=== PATIENT | female | born 1965 | race Two or more races ===

== ENCOUNTER 2019-10-13 08:15 | Day surgery (SDC) | payer OTHER ==
[2019-10-13] VITALS (10 sets, daily range): BP systolic 131–152; BP diastolic 69–88
[~2019-10-13] VITALS: Ht 162.6 cm; Wt 83.9 kg
[2019-10-13] MEDS ORDERED: Propofol 200mg/20ml IV ONE (08:16)
[2019-10-13] MEDS ORDERED: LR 1000ml ONE (08:16)
[2019-10-13] MEDS ORDERED: Lidocaine 1% MPF 10mg/ml 5ml ONE (08:16)
[2019-10-13] MEDS ORDERED: HYDROCHLOROTHIA25 MG ORAL (08:54)
[2019-10-13] MEDS ORDERED: Nimbex 2mg/ml Inj 10ML IVP ONE (08:57)
[2019-10-13] MEDS ORDERED: Succinylcholine 20mg/ml 10ml vial ONE (08:57)
[2019-10-13] MEDS ORDERED: LR 1000ml 1,000 ML IVLG SCH (09:06)
--- NOTE | 2019-10-13 09:10 | Anethesia Preoperative Eval ---
Anesthesia Pre-op PMH/ROS General Date of Evaluation: Oct 13, 2019 Time of Evaluation: 09:08 Anesthesiologist: wendie ASA Score: ASA 3 Mallampati Score Class I : Soft palate, uvula, fauces, pillars visible Class II: Soft palate, uvula, fauces visible Class III: Soft palate, base of uvula visible Class IV: Only hard plate visible Mallampati Classification: Class II Surgeon: joaquin Diagnosis: gerd, pud Surgical Procedure: egd, colonoscopy Anesthesia History: none Social History: smoking - nonsmoker Family History: no anesthesia problems Allergies: Coded Allergies: No Known Allergies (Unverified , 10/13/19) Medications: see eMAR Patient NPO?: Yes Past Medical History Cardiovascular: Reports: HTN Gastrointestinal/Genitourinary: Reports: GERD, other - pud, lmp 09/26/2019, + occult blood in stool Other: obesity Anesthesia Pre-op Phys. Exam Physician Exam Last Vital Signs Date Time Temp Pulse Resp B/P (MAP) Pulse Ox O2 Delivery O2 Flow Rate FiO2 10/13/19 09:02 Room Air 10/13/19 08:59 98.1 54 18 131/77 99 Constitutional: NAD Neurologic: CN 2-12 intact Cardiovascular: RRR Respiratory: CTA Gastrointestinal: S/NT/ND Airway Exam Mallampati Score: Class II MO: full Neck: flexible TMD: 2fb ROM: full Anesthesia Pre-op A/P Labs Urine Test Labs Test 10/13/19 09:00 Urine HCG, Qualitative Negative (NEGATIVE) Risk Assessment & Plan Assessment: asa3 Plan: mac Status Change Before Surgery: No Pre-Antibiotics Drug: Jackeline Rawls MD Oct 13, 2019 09:10
[2019-10-13] MEDS ORDERED: Midazolam 2mg/2ml Inj IVP PRN (09:15)
[2019-10-13] MEDS ORDERED: DiphenhydrAMINE 50mg/ml Inj IVP PRN (09:15)
[2019-10-13] MEDS ORDERED: fentaNYL 100 mcg/2 mL IV PRN (09:15)
[2019-10-13] MEDS ORDERED: Atropine Inj 1mg/10ml Syr IV PRN (09:15)
--- NOTE | 2019-10-13 09:50 | Pre-Procedure Note/Attestation ---
Pre-Procedure Note/Attestation Complete Prior to Procedure Planned Procedure: not applicable Procedure Narrative: esophagogastroduodenoscopy and colonoscopy Indications for Procedure Pre-Operative Diagnosis: gib Attestation I attest that I discussed the nature of the procedure; its benefits; risks and complications; and alternatives (and the risks and benefits of such alternatives ), prior to the procedure, with the patient (or the patient's legal public service representative). I attest that, if there was a reasonable possibility of needing a blood transfusion, the patient (or the patient's legal public service representative) was given the [facility] standardized written summary, pursuant to the Carlitos Josefa Blood Safety Act ([place] Health and Safety Code # 1645, as amended). I attest that I re-evaluated the patient just prior to the surgery and that there has been no change in the patient's H&P, except as documented below: Jerry Keating MD Oct 13, 2019 09:50
--- NOTE | 2019-10-13 09:51 | Short Stay Surgery H&P ---
History of Present Illness History of Present Illness Chief Complaint gib HPI Duy Mares is a 54 year old female who was admitted on for Peptic Ulcer Disease Patient History Allergies: Coded Allergies: No Known Allergies (Unverified , 10/13/19) Medication History Scheduled Hydrochlorothiazide* (Hydrochlorothiazide*), 25 MG ORAL DAILY, (Reported) Review of Systems Cardiovascular: Reports: no symptoms Respiratory: Reports: no symptoms Skeletal: Reports: no symptoms Gastrointestinal: Reports: no symptoms Genitourinary: Reports: no symptoms Neurologic: Reports: no symptoms Endocrine: Reports: no symptoms Physical Exam Vital Signs Last Vital Signs Date Time Temp Pulse Resp B/P (MAP) Pulse Ox O2 Delivery O2 Flow Rate FiO2 10/13/19 09:02 Room Air 10/13/19 08:59 98.1 54 18 131/77 99 Labs Laboratory Tests Test 10/13/19 09:00 Urine HCG, Qualitative Negative (NEGATIVE) Skin: normal HENT: normal Heart: normal Lungs: normal Abdomen: normal Extremities: normal Plan Plan of Care esophagogastroduodenoscopy and colonoscopy Attestation Are the patient's medical conditions optimized for surgery? Attestation Response: yes Jerry Keating MD Oct 13, 2019 09:51
--- NOTE | 2019-10-13 09:55 | Endoscopy Procedure Note ---
Endoscopy Procedure Note General Indication for Procedure: gib Procedures Performed: EGD, colonoscopy Operative Findings/Diagnosis: gastritis, hemorrhoids Specimen: yes Pt Tolerated Procedure Well: Yes Estimated Blood Loss: none Anesthesia Anesthesiologist: dmitry Anesthesia: MAC Inserted Devices Implant(s) used?: No Quality Quality of Bowel Preparation: Good Did scope reach the cecum?: Yes Was there any complications?: No GI Core Measures 50 yrs or older w/o bx or poly: No 10yrs. F/U recommended: Yes If not recommended, why?: Above average risk 18 years or older w/prev. colo: No Jerry Keating MD Oct 13, 2019 09:55
--- NOTE | 2019-10-13 10:35 | Immediate Post-Op Evaluation ---
Immediate Post-Op Evalulation Immediate Post-Op Evalulation Procedure: egd/colonoscopy w/bx Date of Evaluation: Oct 13, 2019 Time of Evaluation: 10:30 IV Fluids: 600ml lr Blood Products: none Estimated Blood Loss: negligible Blood Pressure Systolic: 131 Blood Pressure Diastolic: 79 Pulse Rate: 53 Respiratory Rate: 18 O2 Sat by Pulse Oximetry: 100 Temperature (Fahrenheit): 97.2 Pain Score (1-10): 0 Nausea: No Vomiting: No Complications none Patient Status: awake, reacts, patent Hydration Status: adequate Drug: Jackeline Rawls MD Oct 13, 2019 10:35
--- NOTE | 2019-10-13 10:37 | 48 Hour Post Anesthesia Eval ---
Post Anesthesia Evaluation Procedure: egd/colonoscopy w/bx Date of Evaluation: Oct 13, 2019 Time of Evaluation: 10:32 Blood Pressure Systolic: 136 0: 69 Pulse Rate: 55 Respiratory Rate: 18 Temperature (Fahrenheit): 97.2 O2 Sat by Pulse Oximetry: 100 Airway: patent Nausea: No Vomiting: No Pain Intensity: 0 Hydration Status: adequate Cardiopulmonary Status: stable Mental Status/LOC: patient returned to baseline Post-Anesthesia Complications: none Follow-up care needed: N/A Jackeline Erwin MD Oct 13, 2019 10:37
--- NOTE | 2019-10-13 17:15 | Procedure Note ---
DATE OF PROCEDURE: 10/13/2019 SURGEON: Jerry Keating M.D. PROCEDURE: Upper endoscopy with biopsy and colonoscopy. ANESTHESIA: Per Dr. Martinez. INSTRUMENT: Olympus adult flexible upper endoscope and colonoscope. INDICATION: Stool OB positive. REASON FOR PROCEDURE: The procedure, risks, benefits, and possible consequences, including hemorrhage, aspiration, perforation and infection, and alternative treatments, were explained to the patient/legal guardian by Dr. Jerry Keating and the patient/legal guardian understood and accepted these risks. DESCRIPTION OF PROCEDURE: After informed consent was obtained and the patient was adequately sedated, Olympus upper endoscope was advanced from mouth into the second portion of the duodenum and retroflexion was performed in the stomach. The patient had evidence of diffuse gastritis. Random biopsy from antrum was obtained to rule out H. pylori infection. Otherwise, the rest of upper endoscope examination grossly within normal limits. There was no obvious ulcerations, mass, polyp, or any other pathology was seen. At this time, the upper endoscope was retrieved and the patient was turned over for colonoscopy. First, rectal exam was performed, which was positive for internal hemorrhoids. Then, the scope was advanced from rectum into the cecum, then subsequently to terminal ileum. Quality of prep was very good. The patient had normal colonoscopy examination. No obvious source for the lower GI bleeding was found. Retroflexion of the rectum showed evidence of medium-sized nonbleeding internal hemorrhoids. SUMMARY OF FINDINGS: 1. Gastritis, status post biopsy. 2. Internal hemorrhoids. RECOMMENDATIONS: 1. Follow up biopsy results and treat accordingly. 2. The patient is to follow back in the office for further workup of her causes of stool OB positivity. The patient might benefit from capsule endoscopy if her stool OB is positive persistently. Jerry Keating M.D. DR: NICOLE JOB#: [id number] CC:
== END 2019-10-13 11:45 | disposition home or self-care (01) ==
LOC: GAS 08:15
DX: K21.9 Gastro-esophageal reflux disease without esophagitis (principal); I10 Essential (primary) hypertension; K64.8 Other hemorrhoids; E66.9 Obesity, unspecified; K29.50 Unspecified chronic gastritis without bleeding; B96.81 Helicobacter pylori [H. pylori] as the cause of diseases classified elsewhere
CPT/HCPCS: 43239; 45378; 81025; J2704; J7120; 94003; 94150